=== PATIENT | female | born 1980 ===

== ENCOUNTER → 2024-01-24 | Day surgery (SDC) | payer OTHER ==
[2024-01-17 10:47] LABS: HEMATOCRIT 40.3 % (36.0-45.00); HEMOGLOBIN 13.9 g/dL (12.0-15.00); MEAN CELL VOLUME 92.4 fL (80.00-100.00); MEAN CORPUSCULAR HEMOGLOBIN 31.9 pg (27.00-32.0); MEAN CORPUSCULAR HGB CONC 34.5 g/dl (32.0-36.0); PLATELET COUNT 381 K/uL (150-450); RED BLOOD COUNT 4.36 M/uL (4.00-6.00); RED CELL DISTRIBUTION WIDTH 14.1 % (11.5-14.5)
[2024-01-17 10:54] LABS: URINE APPEARANCE Clear; URINE BILIRRUBIN Small (NEGATIVE); URINE BLOOD Large; URINE COLOR Dark Yellow; URINE GLUCOSE Negative (NEGATIVE); URINE LEUKOCYTE Negative; URINE NITRATE Negative; URINE PROTEIN Trace (NEGATIVE)
[2024-01-17 10:59] LABS: URINE BACTERIA 1322.8 uL (0.0-1933); URINE EPITHELIAL CELLS 20.4 uL (0.0-38.8); URINE RBC 15.3 uL (0.0-20.8); URINE WBC 4.1 uL (0.0-23.2)
[2024-01-17 11:02] LABS: INR 1.01; PARTIAL THROMBOPLASTIN TIME 31.2 SECONDS (22.0-34.0); PROTHROMBIN TIME 10.6 SECONDS (9.0-11.5)
[2024-01-17 11:17] LABS: ALBUMIN 4.1 gm/dL (3.4-5.0); BILIRUBIN TOTAL 0.42 mg/dL (0.3-1.2); CALCIUM 10.5 mg/dL (8.5-10.1); CREATININE SERUM 0.68 mg/dL (0.55-1.02); GFR 94.43; POTASSIUM 3.9 mEq/L (3.5-5.1); TOTAL PROTEIN 8.1 gm/dL (6.4-8.2); TSH 3.45 uIU/mL (0.358-3.74)
[~2024-01-24] MED LIST: ACETAMINOPHEN 500 MG GEL..CAP PO ONE; CELEBREX200MG; CLONAZEPAM2 MG; DEPAKOTE ER500 MG; EFFER-K 10 MEQ10 MEQ; ESTAZOLAM2 MG; IRON1 TA1; KEPPRA750 MG; NEURONTIN300 MG; NORVASC5 MG; POVIDONE-IODINE 118 ML BOTT TOP ONE; PROTONIX40 MG; TENCON CAPSULE1 CAP; ZYPREXA20 MG
== END | disposition home or self-care (01) ==
LOC: ADM 01-17 07:00 → CIR.AMB 07:00
PROVIDERS: ATTEND Student in an Organized Health Care Education/Training Program
DX: Z53.8 Procedure and treatment not carried out for other reasons (principal); Z30.2 Encounter for sterilization

== ENCOUNTER 2024-01-31 05:38 | Day surgery (SDC) | payer OTHER ==
[~2024-01-31 05:38] MED LIST changes: -ACETAMINOPHEN 500 MG GEL..CAP PO ONE; -POVIDONE-IODINE 118 ML BOTT TOP ONE
[2024-01-31] MEDS ORDERED: SIMETHICONE80 MG PO (15:11)
[2024-01-31] MEDS ORDERED: COLACE100 MG PO (15:11)
[2024-01-31] MEDS ORDERED: POVIDONE-IODINE 118 ML BOTT TOP ONE ×2 (15:29→16:15)
[2024-01-31] MEDS ORDERED: SUGAMMADEX SODIUM 200 MG/2 ML VIAL IV ONE ×2 (17:49→18:15)
== END 2024-01-31 22:20 | disposition home or self-care (01) ==
LOC: CIR.AMB 05:38
PROVIDERS: ATTEND Student in an Organized Health Care Education/Training Program
DX: Z30.2 Encounter for sterilization (principal); Z64.1 Problems related to multiparity; I10 Essential (primary) hypertension